=== PATIENT | male | born 1965 | race Two or more races ===

== ENCOUNTER 2020-08-18 09:39 | Inpatient (IN) | payer OTHER ==
[~2020-08-18] VITALS: Ht 165.1 cm; Wt 63.7 kg
[~2020-08-18 09:39] MED LIST: FOLI-17 PO; MULT-484 PO; OMEP-110 PO; THIA100T67 PO
[2020-08-18] MEDS ORDERED: LORazepam 2 MG/ML, 1ML ONE ×2 (09:59→15:55)
[2020-08-18] MEDS ORDERED: SODIUM CHLORIDE FLUSH 10ML SYR IVF ONE (10:00)
[2020-08-18] MEDS ORDERED: MAGNESIUM SULFATE 1 GM, THIAMINE 100 MG, FOLIC ACID 1 MG, MVI ADULT 10 ML in SODIUM CHL... IV ONE (10:00)
[2020-08-18] MEDS ORDERED: LORazepam 2 MG/ML, 1ML IV ONE (10:00)
[2020-08-18] MEDS ORDERED: SODIUM CHLORIDE 0.9% 1,000 ML IV ONE (10:00)
[2020-08-18 10:49] LABS: MEAN CORPUSCULAR HEMOGLOBIN 32.4 pg (27.5-34.5); MEAN CORPUSCULAR HGB CONC 34.4 g/dL (33.2-36.2); MEAN PLATELET VOLUME 6.6 fL (7.4-10.4); PLATELET COUNT 206 x10^3/uL (130-400); RED BLOOD COUNT 6.31 x10^6/uL (4.38-5.82); RED CELL DISTRIBUTION WIDTH 13.7 % (9.4-14.8)
--- NOTE | 2020-08-18 10:54 | NUR ---
PT IN BED, VSS, A & O X4, CONFUION RESOLVING , SON AT BED SIDE,
--- NOTE | 2020-08-18 11:13 | NUR ---
PT TO CT SCAN VIA [facility]
[2020-08-18 11:15] LABS: MD YES
[2020-08-18 11:17] LABS: BAND#(MANUAL) 2.74 x10^3/uL; BANDS%(MANUAL) 18 % (0-7); EOS#(MANUAL) 0.15 x10^3/uL (0.0-0.4); EOS% (MANUAL) 1 % (1-7); LYMPH#(MANUAL) 1.67 x10^3/uL (1-3.4); LYMPHS% (MANUAL) 11 % (22-44); SEG#(MANUAL) 10.64 x10^3/uL (1.8-6.8); SEGS% (MANUAL) 70 % (42-75)
[2020-08-18 11:21] LABS: <PLATELET ESTIMATE> ADEQUATE; <PLT MORPHOLOGY> NORMAL PLT MORPH; <RBC MORPHOLOGY> NORMAL
[2020-08-18] MEDS ORDERED: SODIUM CHLORIDE 0.9%, 500ML IVBOLUS ONE (11:30)
[2020-08-18 12:28] LABS: MICROSCOPIC INDICATED
[2020-08-18 12:30] LABS: AMPHETAMINE SCREEN, URINE Positive (Negative); BARBITURATE SCREEN, URINE Negative (Negative); BENZODIAZEPINE SCREEN, URINE Negative (Negative); CANNABINOID SCREEN, URINE Negative (Negative); COCAINE SCREEN, URINE Negative (Negative); METHADONE SCREEN, URINE Negative (Negative); OPIATE SCREEN, URINE Negative (Negative)
[2020-08-18] MEDS ORDERED: LABETALOL 5MG/ML, 20ML IVPush ONE (12:30)
--- NOTE | 2020-08-18 12:46 | NUR ---
PRECEPTOR NOTE: BLOOD DRAWN X 2 CANCELLED BY LAB DUE TO COAGULATION. IN ROOM DRAWING FEM STICK, PT TOLERATED WELL.
[2020-08-18 13:00] LABS: ALANINE AMINOTRANSFERASE 29 U/L (12-78); ALBUMIN 2.6 g/dL (3.4-5.0); ANION GAP 9 mmol/L (5-15); CHLORIDE 106 mmol/L (98-107); CREATININE 2.36 mg/dL (0.7-1.3)
[2020-08-18] MEDS ORDERED: CEFTRIAXONE PMX 2GM/50ML 50 ML IVPB SCH (13:00)
[2020-08-18 13:03] LABS: ALKALINE PHOSPHATASE 124 U/L (45-117); BILIRUBIN,TOTAL 0.8 mg/dL (0.2-1.0); TOTAL PROTEIN 7.5 g/dL (6.4-8.2)
[2020-08-18] MEDS ORDERED: CEFTRIAXONE PMX 2GM/50ML 50 ML ONE (13:11)
[2020-08-18] MEDS ORDERED: MAGNESIUM SULFATE PMX 2GM/50ML 50 ML IV ONE (13:30)
--- NOTE | 2020-08-18 13:40 | NUR ---
PRECEPTOR NOTE: PT TO CT SCAN VIA [facility]
[2020-08-18] MEDS ORDERED: MAGNESIUM SULFATE PMX 2GM/50ML 0 ML ONE (13:41)
[2020-08-18] MEDS ORDERED: THIAMINE 200 MG in DEXTROSE 5% 50 ML IVPB ONE (14:00)
[2020-08-18] MEDS ORDERED: LORazepam 2 MG/ML, 1ML IV PRN ×5 (14:00)
[2020-08-18] MEDS ORDERED: ONDANSETRON ODT 4 MG PO PRN (14:00)
[2020-08-18] MEDS ORDERED: POTASSIUM CHLORIDE 20 MEQ, MVI ADULT 10 ML, FOLIC ACID 1 MG, MAGNESIUM SULFATE 2 GM in ... IV SCH (14:00)
[2020-08-18] MEDS ORDERED: LORazepam 0.5MG TABLET PO PRN (14:00)
[2020-08-18] MEDS ORDERED: ENALAPRILAT 1.25 MG/ML, 2ML IVPush PRN (14:00)
[2020-08-18] MEDS ORDERED: FOLIC ACID 5 MG/ML IM ONE (14:00)
[2020-08-18] MEDS ORDERED: ONDANSETRON 2MG/ML, 2ML IVPush PRN (14:00)
[2020-08-18] MEDS ORDERED: ACETAMINOPHEN 325 MG TABLET PO PRN (14:00)
[2020-08-18] MEDS ORDERED: LORazepam 1MG TABLET PO PRN ×4 (14:00)
[2020-08-18 14:14] LABS: BASOPHILS % (AUTO) 1 % (0-1); EOSINOPHILS % (AUTO) 1 % (1-7); LYMPHOCYTES % (AUTO) 7 % (22-44); MEAN CORPUSCULAR HEMOGLOBIN 32.7 pg (27.5-34.5); MEAN CORPUSCULAR HGB CONC 34.4 g/dL (33.2-36.2); MEAN PLATELET VOLUME 6.3 fL (7.4-10.4); MONOCYTES % (AUTO) 3 % (2-9); NEUTROPHILS % (AUTO) 89 % (42-75); PLATELET COUNT 159 x10^3/uL (130-400); RED BLOOD COUNT 5.52 x10^6/uL (4.38-5.82); RED CELL DISTRIBUTION WIDTH 13.6 % (9.4-14.8)
[2020-08-18 14:39] LABS: MD NO
--- NOTE | 2020-08-18 15:45 | NUR ---
PRECEPTOR NOTE: 3RD ATTEMPT TO OBTAIN LABS, FOR LA. MD ALVARADO
[2020-08-18] MEDS ORDERED: ENALAPRILAT 1.25 MG/ML, 2ML ONE (15:47)
--- NOTE | 2020-08-18 15:58 | NUR ---
PT DIAPHORETIC, CWA STARTED, 1MG OF ATIVAN ADMINISTERED BY BRIAN SMITH.
[2020-08-18] MEDS: METRONIDAZOLE PMX 500MG/100ML 100 ML IV SCH (16:00)
[2020-08-18] MEDS ORDERED: METRONIDAZOLE PMX 500MG/100ML 100 ML ONE (16:09)
[2020-08-18] MEDS: MAGNESIUM SULFATE IV SCH (16:14)
[2020-08-18] MEDS: FOLIC ACID IV SCH (16:14)
[2020-08-18] MEDS: [UNRECOGNIZED DRUG - OTHER] IV SCH (16:14)
[2020-08-18] MEDS: POTASSIUM CHLORIDE IV SCH (16:14)
[2020-08-18] MEDS: MVI ADULT IV SCH (16:14)
--- NOTE | 2020-08-18 16:25 | NUR ---
PT CALM AFTER ATIVAN, INCREASE EMOTIONAL SUPPORT TO DAUGHTER. EXPLAINED PLAN OF CARE. DAUGHTER VERBALIZED UNDERSTANDING.
--- NOTE | 2020-08-18 17:14 | NUR ---
PT SLEEPING, RESP EVEN AND UNLABORED. IV INFUSING WELL.
--- NOTE | 2020-08-18 17:34 | NUR ---
PT AROUSES WHEN TALK TO, OPENS EYES, DENIES ANY NEEDS. IV INFUSING AWAITING BED PLACEMENT UPSTAIRS
--- NOTE | 2020-08-18 17:55 | NUR ---
SON AT BS. REPOSITIONED PATIENT FOR COMFORT, EASILY RESPONDS TO VERBAL STIMULI
--- NOTE | 2020-08-18 18:46 | NUR ---
CALLED REPORT TO SIMON SMITH, PLAN OF CARE DISCUSSED
[2020-08-18 20:00] VITALS: BP 165/111
[2020-08-18 22:00] VITALS: BP 157/98
[2020-08-18 23:16] VITALS: BP 179/112
[2020-08-19] VITALS (9 sets, daily range): BP systolic 129–180; BP diastolic 64–140
[2020-08-19] MEDS: ENALAPRILAT 1.25 MG/ML, 1ML IVPush PRN ×2 (01:44→02:22)
[2020-08-19] MEDS: METRONIDAZOLE PMX 500MG/100ML 100 ML IV SCH ×3 (02:23→20:48)
[2020-08-19] MEDS ORDERED: hydrALAzine 20 MG/ML, 1ML IV ONE (02:55)
[2020-08-19 04:45] LABS: INTERNATIONAL NORMALIZED RATIO 1.24 (0.93-1.1); PROTHROMBIN TIME 13.1 Seconds (9.6-11.5)
[2020-08-19 04:47] LABS: ALANINE AMINOTRANSFERASE 20 U/L (12-78); ALBUMIN 2.4 g/dL (3.4-5.0); ANION GAP 7 mmol/L (5-15); CALCIUM 7.9 mg/dL (8.5-10.1); CHLORIDE 110 mmol/L (98-107); CREATININE 1.74 mg/dL (0.7-1.3)
[2020-08-19 04:49] LABS: ALKALINE PHOSPHATASE 99 U/L (45-117); BILIRUBIN,TOTAL 0.8 mg/dL (0.2-1.0); TOTAL PROTEIN 6.5 g/dL (6.4-8.2)
[2020-08-19] MEDS: MULTIVITAMINS/MINERALS TABLET PO SCH (12:02)
[2020-08-19] MEDS: CEFTRIAXONE PMX 1GM/50ML 50 ML IV SCH (13:19)
[2020-08-19] MEDS: FOLIC ACID IV SCH (15:58)
[2020-08-19] MEDS: [UNRECOGNIZED DRUG - OTHER] IV SCH (15:58)
[2020-08-19] MEDS: MAGNESIUM SULFATE IV SCH (15:58)
[2020-08-19] MEDS: MVI ADULT IV SCH (15:58)
[2020-08-19] MEDS: POTASSIUM CHLORIDE IV SCH (15:58)
[2020-08-20 01:34] VITALS: BP 127/58
[2020-08-20] MEDS: METRONIDAZOLE PMX 500MG/100ML 100 ML IV SCH ×2 (04:23→11:47)
[2020-08-20 05:42] LABS: BASOPHILS % (AUTO) 0 % (0-1); EOSINOPHILS % (AUTO) 5 % (1-7); LYMPHOCYTES % (AUTO) 18 % (22-44); MEAN CORPUSCULAR HEMOGLOBIN 32.7 pg (27.5-34.5); MEAN CORPUSCULAR HGB CONC 33.9 g/dL (33.2-36.2); MEAN PLATELET VOLUME 7.4 fL (7.4-10.4); MONOCYTES % (AUTO) 6 % (2-9); NEUTROPHILS % (AUTO) 71 % (42-75); PLATELET COUNT 137 x10^3/uL (130-400); RED BLOOD COUNT 4.42 x10^6/uL (4.38-5.82); RED CELL DISTRIBUTION WIDTH 14.1 % (9.4-14.8)
[2020-08-20 05:55] LABS: ALANINE AMINOTRANSFERASE 17 U/L (12-78); ALBUMIN 2.2 g/dL (3.4-5.0); ANION GAP 5 mmol/L (5-15); CALCIUM 7.9 mg/dL (8.5-10.1); CHLORIDE 111 mmol/L (98-107); CREATININE 1.42 mg/dL (0.7-1.3)
[2020-08-20 05:57] LABS: ALKALINE PHOSPHATASE 96 U/L (45-117); BILIRUBIN,TOTAL 0.7 mg/dL (0.2-1.0); TOTAL PROTEIN 6.2 g/dL (6.4-8.2)
[2020-08-20 06:00] LABS: MD NO
[2020-08-20 06:37] VITALS: BP 149/78
[2020-08-20] MEDS: MULTIVITAMINS/MINERALS TABLET PO SCH (08:06)
[2020-08-20] MEDS ORDERED: THIAMINE 100 MG in DEXTROSE 5% 50 ML IVPB SCH (09:00)
[2020-08-20 12:05] VITALS: BP 130/80
[2020-08-20] MEDS ORDERED: CEFD300C37 PO (12:39)
[2020-08-20] MEDS ORDERED: METR500T PO (12:39)
[2020-08-20] MEDS ORDERED: THIA100T67 PO (12:39)
[2020-08-20] MEDS ORDERED: FOLI-17 PO (12:39)
[2020-08-20] MEDS ORDERED: OMEP-110 PO (12:39)
[2020-08-20] MEDS: CEFTRIAXONE PMX 1GM/50ML 50 ML IV SCH (12:56)
[2020-08-20] MEDS ORDERED: SODIUM PHOSPHATE 30 MMOL in SODIUM CHLORIDE 0.9% 500 ML IV ONE (13:30)
== END 2020-08-20 14:21 | disposition home or self-care (01) | DRG 871 ==
LOC: MERGE 09:39 → EDBD 09:39 → ED 10:42 → SUATTDRO 13:53 → EDIP 14:19 → 4WST 18:56 → DCLOUNGE 08-20 14:15
PROVIDERS: ADMIT Family Medicine; ATTEND Hospitalist
DX: A41.9 Sepsis, unspecified organism (principal); G93.41 Metabolic encephalopathy; J69.0 Pneumonitis due to inhalation of food and vomit; K85.90 Acute pancreatitis without necrosis or infection, unspecified; N17.0 Acute kidney failure with tubular necrosis; F10.239 Alcohol dependence with withdrawal, unspecified; M48.54XA Collapsed vertebra, not elsewhere classified, thoracic region, initial encounter for fracture; N39.0 Urinary tract infection, site not specified; D75.1 Secondary polycythemia; E83.39 Other disorders of phosphorus metabolism; E86.0 Dehydration; E88.09 Other disorders of plasma-protein metabolism, not elsewhere classified; I10 Essential (primary) hypertension; K52.9 Noninfective gastroenteritis and colitis, unspecified; K70.9 Alcoholic liver disease, unspecified; R56.9 Unspecified convulsions
CPT/HCPCS: 36415; 84145; J7042; 70450; 71045; 74176; 80053; 80307; 80320; 81001; 82140; 83605; 83690; 83735; 84100; 85025; 85610; 87040; 87086; 93005; G0378; J0696; J3411; J3475; J3480; G0480; J0360; J2060; J7030; J7040